=== PATIENT | female | born 1970 | race Caucasian/White ===

== ENCOUNTER 2016-12-23 22:47 | Emergency (ER) | payer BC ==
[2016-12-23] MEDS ORDERED: Meclizine 25 MG Tab PO ONE (23:11)
--- NOTE | 2016-12-23 23:19 | EDM.PDOC ---
ED HPI GENERAL MEDICAL PROBLEM - General Chief Complaint: Neuro Symptoms/Deficits Stated Complaint: DIZZY, CHEST PAIN Time Seen by Provider: 12/23/16 23:05 Source of Information: Reports: Patient History Limitations: Reports: No Limitations - History of Present Illness INITIAL COMMENTS - FREE TEXT/NARRATIVE: 45 yo female presents with onset about 8 pm tonight of vertigo with nausea. No vomiting. Had had this vertigo in the past and was tx'd with Dramamine, but was out of it. Had some mild L sided chest discomfort that is now gone. Admits she was pretty anxious upon presentation to the ER. Does smoke. Has no personal or FHx of CAD. Dizziness is worse if she turns her head. 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 Denies: Abdominal Pain, Vomiting : Reports: No Symptoms Musculoskeletal: Reports: No Symptoms Skin: Reports: No Symptoms Neurological: Reports: Dizziness, Gait Disturbance Psychiatric: Reports: Anxiety ED EXAM, DIZZINESS - Physical Exam Exam: See Below Exam Limited By: No Limitations General Appearance: Alert, WD/WN, No Apparent Distress, Anxious (mild) Eye Exam: Bilateral Eye: EOMI, Normal Inspection, PERRL Ears: Normal External Exam, Normal Canal, Hearing Grossly Normal, Normal TMs Nose: Normal Inspection, Normal Mucosa, No Blood Throat/Mouth: Normal Inspection, Normal Lips, Normal Oropharynx, Normal Voice, No Airway Compromise Head Exam: Atraumatic, Normocephalic Vertigo: worsens with head to L, reproducible Neck: Normal Inspection Respiratory/Chest: No Respiratory Distress, Lungs Clear, Normal Breath Sounds, No Accessory Muscle Use Cardiovascular: Regular Rate, Rhythm, No Edema GI/Abdominal: Normal Bowel Sounds, Soft, Non-Tender, No Distention Neurological: Alert, Normal Mood/Affect, CN II-XII Intact, No Motor/Sensory Deficits, Oriented x 3 Back Exam: Normal Inspection. No: CVA Tenderness (R), CVA Tenderness (L) Extremities: Normal Inspection, Normal Range of Motion, Non-Tender, No Pedal Edema Psychiatric: Normal Affect, Normal Mood, Anxious (mildly) Skin Exam: Warm, Dry, Intact, Normal Color, No Rash Course - Vital Signs Last Recorded V/S: Last Vital Signs Temp 36.8 C 12/23/16 22:58 Pulse 73 12/23/16 22:58 Resp 16 12/23/16 22:58 BP 158/83 H 12/23/16 22:58 Pulse Ox 100 12/23/16 22:58 - Orders/Labs/Meds Orders: Active Orders 24 hr Category Date Time Status EKG Documentation Completion [RC] ASDIRECTED Care 12/23/16 23:06 Active EKG 12 Lead [EK] Routine Ther 12/23/16 23:06 Ordered Meds: Medications Discontinued Medications Generic Name Dose Route Start Last Admin Trade Name Freq PRN Reason Stop Dose Admin Meclizine HCl 25 mg 12/23/16 23:11 12/23/16 23:17 Antivert PO 12/23/16 23:12 25 mg ONETIME ONE Administration Departure - Departure Time of Disposition: 23:53 Disposition: Home, Self-Care 01 Condition: Good Clinical Impression: BPV (benign positional vertigo) Qualifiers: Laterality: left Qualified Code(s): H81.12 - Benign paroxysmal vertigo, left ear - Discharge Information Referrals: Carlos Arnold MD [Primary Care Provider] - Forms: ED Department Discharge Additional Instructions: Take meclizine or Dramamine as needed for vertigo. Recheck as needed. No driving tonight. - My Orders Last 24 Hours: My Active Orders 12/23/16 23:06 EKG Documentation Completion [RC] ASDIRECTED EKG 12 Lead [EK] Routine - Assessment/Plan Last 24 Hours: My Active Orders 12/23/16 23:06 EKG Documentation Completion [RC] ASDIRECTED EKG 12 Lead [EK] Routine
== END 2016-12-24 | disposition home or self-care (01) ==
LOC: FB.ED 22:47
DX: H81.12 Benign paroxysmal vertigo, left ear (principal)
CPT/HCPCS: 93005; 99284; A9270

== ENCOUNTER 2017-03-29 12:48 | Emergency (ER) | payer BC ==
[2017-03-29] MEDS ORDERED: Ketorolac 60 MG/2 ML SDV IM ONE (13:18)
--- NOTE | 2017-03-29 13:25 | EDM.PDOC ---
ED HPI GENERAL MEDICAL PROBLEM - General Chief Complaint: Upper Extremity Injury/Pain Stated Complaint: NECK PAIN Time Seen by Provider: 03/29/17 12:58 Source of Information: Reports: Patient, Family History Limitations: Reports: No Limitations - History of Present Illness INITIAL COMMENTS - FREE TEXT/NARRATIVE: 46 y.o.w.devan came to the ed with severe right shoulder spasm, which started right after she woke this morning. She denied trauma. Pt located the pain between her r shoulder plate and upper mid spine, No N/V/D or any other acute medical issues at this time. 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 Pt denied h/o gout. BP 127/94 pulse ox 100% RR 20 pulse 84 Onset: Today Onset Date: 03/29/17 Onset Time: 07:00 Duration: Hour(s):, Constant Location: Reports: Upper Extremity, Right Quality: Reports: Ache, Burning Severity: Moderate Improves with: Reports: Rest Worsens with: Reports: Movement Context: Reports: Other (woke up with r sholder pain) Associated Symptoms: Reports: No Other Symptoms R shoulder Pain Score (Numeric/FACES): 10 - Related Data Allergies Allergy/AdvReac Type Severity Reaction Status Date / Time No Known Allergies Allergy Verified 03/29/17 13:05 Home Meds: Home Meds Orphenadrine [Norflex] 100 mg PO BID PRN #20 tab.er 03/29/17 [Rx] Past Medical History Genitourinary History: Reports: None 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: Musculoskeletal History: Reports: Fracture Other Musculoskeletal History: fx R ankle in past Endocrine/Metabolic History: Reports: Obesity/BMI 30+ - Infectious Disease History Infectious Disease History: Reports: Chicken Pox - Past Surgical History Female Surgical History: Reports: Section Other Female Surgeries/Procedures: CS x 1 Musculoskeletal Surgical History: Reports: None Social & Family History - Family History Family Medical History: Noncontributory - Tobacco Use Smoking Status *Q: Never Smoker Second Hand Smoke Exposure: No - Caffeine Use Caffeine Use: Reports: Coffee, Soda - Recreational Drug Use Recreational Drug Use: No Review of Systems - Review of Systems Review Of Systems: See Below Constitutional: Reports: No Symptoms Eyes: Reports: No Symptoms Ears: Reports: No Symptoms Nose: Reports: No Symptoms Mouth/Throat: Reports: No Symptoms Respiratory: Reports: No Symptoms Cardiovascular: Reports: No Symptoms GI/Abdominal: Reports: No Symptoms Genitourinary: Reports: No Symptoms Musculoskeletal: Reports: No Symptoms Skin: Reports: No Symptoms Neurological: Reports: No Symptoms Psychiatric: Reports: No Symptoms ED EXAM, GENERAL - Physical Exam Exam: See Below Exam Limited By: No Limitations General Appearance: Alert, WD/WN, Mild Distress, Obese Eye Exam: Bilateral Eye: Normal Inspection Ears: Normal External Exam Ear Exam: Bilateral Ear: Auricle Normal Nose: Normal Inspection Throat/Mouth: Normal Inspection Head: Atraumatic, Normocephalic Neck: Normal Inspection, Supple, Non-Tender Respiratory/Chest: No Respiratory Distress, Lungs Clear, Normal Breath Sounds Cardiovascular: Normal Peripheral Pulses, Regular Rate, Rhythm Peripheral Pulses: 1+: Brachial (L), Brachial (R) GI/Abdominal: Normal Bowel Sounds, Soft, Non-Tender (Female) Exam: Deferred Rectal (Female) Exam: Deferred Back Exam: Decreased Range of Motion (R sholder due to para vertebral pain upper extremity) Extremities: Normal Inspection Neurological: Alert, Oriented, CN II-XII Intact, Normal Cognition, Normal Gait Psychiatric: Normal Affect, Normal Mood Skin Exam: Warm, Dry, Intact, Normal Color, No Rash Lymphatic: No Adenopathy Course - Vital Signs Text/Narrative:: 46 y.o.w.f came to the ed with severe right shoulder spasm, which started right after she woke this morning. She denied trauma. Pt located the pain between her r shoulder plate and upper mid spine, No N/V/D or any other acute medical issues at this time. 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 Pt denied h/o gout. BP 127/94 pulse ox 100% RR 20 pulse 84 PE: Limited ROM of right shoulder due to right upper paravertebral back pain Imaging: R shoulder: NAD Labs: CBC (hgb was 10.5), Uric acid and BMP were neg ( Cr was 0.5) Impression: right upper paravertebral back spasm Tx: Toradol, Norflex, Ice Reexam: Improved Plan: D/C with instruction Last Recorded V/S: Last Vital Signs Temp 36.4 C 03/29/17 12:58 Pulse 84 03/29/17 12:58 Resp 20 03/29/17 12:58 BP 127/94 H 03/29/17 12:58 Pulse Ox 100 03/29/17 12:58 - Orders/Labs/Meds Orders: Active Orders 24 hr Category Date Time Status Shoulder Comp Rt [CR] Stat Exams 03/29/17 14:38 Taken Labs: Laboratory Tests 03/29/17 03/29/17 Range/Units 15:10 15:10 WBC 10.2 (4.5-12.0) X10-3/uL RBC 3.67 (3.23-5.20) x10(6)uL Hgb 10.5 L (11.5-15.5) g/dL Hct 30.1 (30.0-51.3) % MCV 82.0 (80-96) fL MCH 28.5 (27.7-33.6) pg MCHC 34.8 (32.2-35.4) g/dL RDW 13.3 (11.5-15.5) % Plt Count 264 (125-369) X10(3)uL MPV 10.9 H (7.4-10.4) fL Neut % (Auto) 76.5 (46-82) % Lymph % (Auto) 17.5 (13-37) % [place] % (Auto) 3.8 L (4-12) % Eos % (Auto) 1 (1.0-5.0) % Baso % (Auto) 2 (0-2) % Neut # (Auto) 7.6 (1.6-8.3) # Lymph # (Auto) 1.8 (0.6-5.0) # [place] # (Auto) 0.4 (0.0-1.3) # Eos # (Auto) 0.1 (0.0-0.8) # Baso # (Auto) 0.2 (0.0-0.2) # Sodium 136 (135-145) mmol/L Potassium 4.0 (3.5-5.3) mmol/L Chloride 104 (100-110) mmol/L Carbon Dioxide 25 (23-29) mmol/L BUN 9 (5-20) mg/dL Creatinine 0.5 L (0.6-1.3) mg/dL Est Cr Clr Drug Dosing 120.11 mL/min Estimated GFR (MDRD) > 60 (>60) BUN/Creatinine Ratio 18.0 (9-20) Glucose 103 (80-116) mg/dL Uric Acid 4.1 (3.0-7.0) mg/dL Calcium 8.9 (8.6-10.2) mg/dL Meds: Medications Discontinued Medications Generic Name Dose Route Start Last Admin Trade Name Ericq PRN Reason Stop Dose Admin Ketorolac Tromethamine 60 mg 03/29/17 13:18 03/29/17 13:25 Toradol IM 03/29/17 13:19 60 mg ONETIME ONE Administration Orphenadrine Citrate 60 mg 03/29/17 14:41 03/29/17 15:04 Norflex IM 03/29/17 14:42 60 mg ONETIME STA Administration Departure - Departure Time of Disposition: 15:32 Disposition: Home, Self-Care 01 Condition: Good Clinical Impression: Sprain of shoulder, right Qualifiers: Encounter type: initial encounter Shoulder sprain type: other part of shoulder region Qualified Code(s): S43.491A - Other sprain of right shoulder joint, initial encounter - Discharge Information Prescriptions: Orphenadrine [Norflex] 100 mg PO BID PRN #20 tab.er PRN Reason: for severe muscle spasm Instructions: Muscle Cramps and Spasms, [id number], Shoulder Pain, Easy-to- Read Referrals: Carlos Arnold MD [Primary Care Provider] - Forms: ED Department Discharge, ED Return to Work/School Form Additional Instructions: Please apply ice to the affected areas, please take norflex and mortin as recommended, please follow up with your regular MD at clinic next week, come back if the symptoms get worse acutely. - My Orders Last 24 Hours: My Active Orders 03/29/17 14:38 Shoulder Comp Rt [CR] Stat - Assessment/Plan Last 24 Hours: My Active Orders 03/29/17 14:38 Shoulder Comp Rt [CR] Stat
--- NOTE | 2017-03-31 12:23 | CR ---
INDICATION: Shoulder pain radiating to neck after sleeping on a couch. RIGHT SHOULDER, 4 VIEWS: No glenohumeral degenerative changes. No fracture or dislocation. Nothing to suggest significant pathology. MTDD
== END 2017-03-29 15:49 | disposition home or self-care (01) ==
LOC: FB.ED 12:48
DX: S43.491A Other sprain of right shoulder joint, initial encounter (principal); X58.XXXA Exposure to other specified factors, initial encounter
CPT/HCPCS: 36415; 73030; 80048; 84550; 85025; 96372; 99284; J1885; J2360